=== PATIENT | male | born 1975 | race Hispanic/Latino ===

== ENCOUNTER 2019-06-02 09:16 | Inpatient (IN) | payer OTHER ==
[~2019-06-02] VITALS: Ht 167.6 cm; Wt 100.2 kg
[~2019-06-02 09:16] MED LIST: ALIVE MULTIVITAMIN PO; GLIMEPIRIDE2 MG PO; GLIMEPIRIDE4 MG PO; LISINOPRIL10 MG PO; PIOGLITAZONE45 MG PO; TERBINAFINE HC250 MG PO
[2019-06-02] MEDS ORDERED: SODIUM CHLORIDE 0.9% 1000ML 1,000 ML IV STA (09:19)
--- OUTSIDE RECORDS SUMMARY | 2019-06-02 09:21 | XMS REPORT ---
Author Author [facility] Address Unknown Phone Unavailable Care Team Providers [facility] Sales Representative Name Role Phone Yadiel FORD Unavailable Unavailable Problems This patient has no known problems. Allergies, Adverse Reactions, Alerts This patient has no known allergies or adverse reactions. Medications This patient has no known medications. Results Test Description Test Time Test Comments Text Results Atomic Results Result Comments CHEST [address] [address] Patient Name: CASSANDRA GREENFIELD MR #: [id number] : 1975 Age/Sex: 41/M Req #: [id number] Adm Physician: Ordered by: LINDY FORD MD Report #: [id number] Location: ER Room/Bed: Procedure: [id number] DX/CHEST 2 VIEWS Exam Date: 01/24/17 Exam Time: 2026 REPORT STATUS: Signed EXAMINATION: CHEST 2 VIEWS INDICATION: Cough. COMPARISON: None FINDINGS: TUBES and LINES: None. LUNGS: Lungs are well inflated. Lungs are clear. There is no evidence of pneumonia or pulmonary edema. PLEURA: No pleural effusion or pneumothorax. HEART AND MEDIASTINUM: The cardiomediastinal silhouette is unremarkable. BONES AND SOFT TISSUES: No acute osseous lesion. Soft tissues are unremarkable. UPPER ABDOMEN: No free air under the diaphragm. IMPRESSION: No acute thoracic abnormality. Signed by: Dr. Vasiliy Castorena M.D. on 01/24/2017 8:59 PM Dictated By: VASILIY MULLINS MD 56 Transcribed By: SHALINI on 01/24/172058 COPY TO: LINDY FORD MD
[2019-06-02] MEDS ORDERED: DEXTROSE 50% SYRINGE 50 ML IV PRN (09:30)
[2019-06-02 10:14] LABS: BASOPHILS # (AUTO) 0.1 (0.0-0.1); BASOPHILS % 0.5 % (0.0-1.0); EOSINOPHILS # (AUTO) 0.1 (0.0-0.4); HEMOGLOBIN 14.6 g/dL (14.0-18.0); LYMPHOCYTES # (AUTO) 1.7 (1.0-3.2); LYMPHOCYTES % 16.4 % (18.0-39.1); MEAN CORPUSCULAR HEMOGLOBIN 30.3 pg (28-32); MEAN CORPUSCULAR VOLUME 89.2 fL (81-99); MONOCYTES # (AUTO) 0.8 (0.2-0.8); MONOCYTES % 7.4 % (4.4-11.3); NEUTROPHILS # (AUTO) 7.6 (2.1-6.9); NEUTROPHILS % 74.3 % (38.7-80.0); PLATELET COUNT 167 x10e3/uL (140-360); RED BLOOD COUNT 4.82 x10e6/uL (4.3-5.7); RED CELL DISTRIBUTION WIDTH 12.2 % (11.7-14.4)
[2019-06-02 10:16] LABS: CLARITY,URINE SL CLOUDY (CLEAR); COLOR,URINE YELLOW (YELLOW)
[2019-06-02 10:17] LABS: BILIRUBIN,URINE NEGATIVE (NEGATIVE); KETONES,URINE TRACE (NEGATIVE); LEUKOCYTE ESTERASE ,URINE NEGATIVE (NEGATIVE); NITRITE,URINE NEGATIVE (NEGATIVE); PROTEIN,URINE DIPSTICK TRACE (NEGATIVE); URINE UROBILINOGEN 0.2 mg/dL (0.2 - 1)
[2019-06-02] MEDS: PIPER-TAZ 3.375 GM 50 ML IV SCH ×3 (10:19→21:25)
[2019-06-02] MEDS: MORPHINE SULFATE INJ 4 MG/ML INJ 1ML IV PRN ×2 (10:19→19:40)
[2019-06-02] MEDS: ONDANSETRON HCL INJ 2MG/ML 2ML 2 MG/ML VIAL IV PRN (10:19)
[2019-06-02] MEDS ORDERED: METFORMIN HCL1000 MG PO (10:25)
[2019-06-02] MEDS ORDERED: LEVEMIR FL100 UNIT/1 SQ (10:25)
[2019-06-02 10:32] LABS: BACTERIA,URINE FEW /HPF; EPITHELIAL CELLS,URINE FEW /LPF; RBC,URINE 0-5 /HPF (0-5); WBC,URINE (MAN) 0-5 /HPF (0-5)
[2019-06-02 10:35] LABS: ALANINE AMINOTRANSFERASE 20 IU/L (0-55); ALBUMIN 3.3 g/dL (3.5-5.0); ALBUMIN/GLOBULIN RATIO 0.7 (0.8-2.0); ALKALINE PHOSPHATASE 90 IU/L (40-150); ANION GAP 14.9 mmol/L (8-16); BLOOD UREA NITROGEN 21 mg/dL (7-26); BUN/CREATININE RATIO 19 (6-25); CALCIUM 9.6 mg/dL (8.4-10.2); CARBON DIOXIDE 26 mmol/L (22-29); CHLORIDE 103 mmol/L (98-107); CREATININE, SERUM 1.09 mg/dL (0.72-1.25); EST GLOMERULAR FILTRATION RATE > 60 ML/MIN (60-); GLUCOSE 152 mg/dL (74-118); POTASSIUM 3.9 mmol/L (3.5-5.1); SODIUM 140 mmol/L (136-145)
--- NOTE | 2019-06-02 10:51 | Diagnostic Imaging Report ---
EXAM: CT Abdomen and Pelvis WITHOUT intravenous contrast INDICATION: Testicular abscess, swelling COMPARISON: None. TECHNIQUE: Abdomen and pelvis were scanned utilizing a multidetector helical scanner from the lung base to the pubic symphysis without administration of IV contrast. Coronal and sagittal reformations were obtained. IV CONTRAST: None ORAL CONTRAST: None COMPLICATIONS: None RADIATION DOSE: Total DLP: 1020 mGy*cm Dose modulation, iterative reconstruction, and/or weight based adjustment of the mA/kV was utilized to reduce the radiation dose to as low as reasonably achievable. FINDINGS: LOWER THORAX: Mild atherosclerotic coronary artery calcifications. Mild bibasilar subsegmental atelectasis. HEPATOBILIARY: No focal liver lesion. No biliary ductal dilation. Unremarkable gallbladder. SPLEEN: No splenomegaly. PANCREAS: No focal masses or ductal dilatation. ADRENALS: No adrenal nodules. KIDNEYS/URETERS: 4 mm nonobstructive left upper pole renal calculus. 3 mm nonobstructive right lower pole renal calculus. No hydronephrosis or hydroureter. 1.5 cm exophytic right lower pole low density structure (11HU), most likely a cyst. PELVIC ORGANS/BLADDER: Unremarkable. PERITONEUM / RETROPERITONEUM: No free air or free fluid. LYMPH NODES: 2.3 x 1.6 cm right inguinal lymph node, likely reactive. VESSELS: Unremarkable. GI TRACT: No abnormal bowel thickening. No bowel obstruction. Normal appendix. BONES AND SOFT TISSUES: Extensive scrotal soft tissue swelling and skin thickening with associated scrotal fat stranding and minimal perineal fat stranding. No focal drainable fluid collection. No soft tissue emphysema. IMPRESSION: Extensive scrotal soft tissue swelling and skin thickening right greater than left without focal drainable fluid collection or subcutaneous gas, consistent with cellulitis. Enlarged right inguinal lymph node is likely reactive. 4 mm nonobstructive left upper pole renal calculus and 3 mm nonobstructive right lower pole renal calculus. 1.5 cm exophytic right lower pole low density structure most likely represents a cyst. However, there appears to be some internal heterogeneity. Renal ultrasound is recommended for further evaluation. Signed by: Becky Merino MD on 06/02/2019 10:48 AM
[2019-06-02] MEDS: INSULIN LISPRO 100 UNIT/1 ML 3ML VIAL SQ SCH ×3 (11:30→21:00)
[2019-06-02 12:09] VITALS: BP 133/80
[2019-06-02] MEDS ORDERED: LIDOCAINE 1% W/EPINEPHRINE 20 ML VIAL ONE (12:35)
[2019-06-02] MEDS ORDERED: VANCOMYCIN 1GM/NS 250 ML 250 ML ONE (12:38)
[2019-06-02] MEDS ORDERED: FENTANYL CITRATE/PF 100MCG/2 ML INJ ONE (12:56)
[2019-06-02] MEDS ORDERED: MIDAZOLAM HCL 2 MG/2 ML VIAL ONE (12:56)
[2019-06-02] MEDS ORDERED: DEXAMETHASONE SOD PHOS INJ 4 MG/ML VIAL ONE (14:08)
[2019-06-02] MEDS ORDERED: ONDANSETRON HCL INJ 2MG/ML 2ML 2 MG/ML VIAL ONE (14:08)
[2019-06-02] MEDS ORDERED: SEVOFLURANE INHAL SOLN 250 ML PEN BTL ONE (14:08)
[2019-06-02] MEDS ORDERED: ACETAMINOPHEN 1000 MG/100 ML IV ONE (14:08)
[2019-06-02] MEDS ORDERED: PROPOFOL IV EMULSION 10 MG/ML 20 ML VIAL ONE (14:08)
[2019-06-02] MEDS ORDERED: LIDOCAINE HCL 2% LOCAL INJ 5 ML SDV VIAL INJ ONE (14:08)
[2019-06-02 15:05] VITALS: BP 116/81
--- NOTE | 2019-06-02 16:09 | Operative Report ---
DATE OF PROCEDURE: 06/02/2019 SURGEON: Godfrey Green MD PREOPERATIVE DIAGNOSIS: Right scrotal abscess. POSTOPERATIVE DIAGNOSIS: Right scrotal abscess. OPERATION PERFORMED: Incision and drainage of right scrotal abscess. ANESTHESIA: General. COMPLICATIONS: None. SPECIMENS: Cultures. ESTIMATED BLOOD LOSS: Minimal. CLINICAL SUMMARY: Vasu Miranda is a 44-year-old poorly-controlled diabetic with a week-long history of progressively worsening right scrotal swelling, it is consistent with an abscess on physical examination. He is brought to the operating room for incision and drainage. He is aware of the risks of bleeding, infection, injury to adjacent structures. He understands he will have an open wound that will require packing until it is healed by secondary intention. He understood these risks and elected to proceed. OPERATIVE PROCEDURE IN DETAIL: Informed consent was verified. Vasu Miranda was properly identified and taken to the operating room, placed on the cystoscopy table in supine position. Anesthesia was uneventfully begun. The patient was placed in a frogleg position with all pressure points carefully well padded. His genitalia were shaved, prepared, and draped in the usual sterile fashion. A longitudinal incision was made through the skin overlying the abscess, this was carried into the abscess. Thick purulent and malodorous pus was obtained, it was sent for culture and sensitivity. Copious irrigation was performed. We debrided a little bit of necrotic tissue. Lidocaine with epinephrine was utilized to infiltrate circumferentially around the abscess cavity for postoperative pain control and after copiously irrigating one last time, we packed the incision with half-inch iodoform gauze and covered it with sterile gauze, held in place with meshed panties. The patient was then uneventfully reversed from anesthesia and taken to the recovery room in stable condition. There were no complications of the procedure. The patient tolerated the procedure well. Sponge, needle, and instrument counts were correct x2 at the end of the case. Estimated blood loss was minimal. Explicit postop instructions were given. We will follow the patient up on a long-term basis. Godfrey Green MD OH/MODL /[id number] cc: MD Forest Kirkpatrick MD
[2019-06-02 16:24] VITALS: BP 119/64
[2019-06-02] MEDS ORDERED: ACETAMINOPHEN 325 MG TAB PO PRN (16:45)
--- NOTE | 2019-06-02 18:19 | Consultation ---
DATE OF CONSULTATION: 06/02/2019 Urology Consultation REASON FOR CONSULTATION: Scrotal abscess. HISTORY OF PRESENT ILLNESS: Vasu Miranda is a 44-year-old man, who has never seen a urologist. He denies hematuria, dysuria, urinary tract infection and urolithiasis. He reports having impotence as well as nocturia x2. The patient also has had a problem with morbid obesity and poorly controlled diabetes with hemoglobin A1c approximately 14. The patient is admitted with a 1-week history of enlarging tender right scrotal lesion consistent with an abscess. Urological consultation was sought for management. The patient has been placed n.p.o. and was maintained as such after showing up in the emergency room. PAST MEDICAL AND SURGICAL HISTORY: 1. Status post umbilical herniorrhaphy. 2. Diabetes mellitus. 3. Hypercholesterolemia. 4. Hypertension. 5. Status post left arm tendon repair. 6. Obesity. ALLERGIES: NONE KNOWN. CURRENT MEDICATIONS: Please refer to MAR. SOCIAL HISTORY: The patient denies smoking, ethanol, or drug use. He smoked when he was a teenager. 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 FAMILY HISTORY: Noncontributory to the active urological problems. REVIEW OF SYSTEMS: As discussed as above in the history of present illness, past medical history otherwise negative for all systems. PHYSICAL EXAMINATION: GENERAL: A pleasant 44-year-old man lying in bed, in no apparent distress. VITAL SIGNS: He is currently afebrile and his vital signs are currently stable. ABDOMEN: Soft, nondistended, nontender without costovertebral angle tenderness. Kidneys not palpable without hepatosplenomegaly. The patient is obese. GENITOURINARY: Testes are descended bilaterally. Testes and epididymides bilaterally palpably normal. The patient has a large at least 5 or 6 cm x 3 cm tender growth consistent with an abscess in the right hemiscrotum near the groin crease. The testicle does not seem to be involved. The patient has a normal uncircumcised male phallus with normal meatus. For the remaining physical examination systems, please refer to the ERT sheet as well as the history and physical by the admitting physician. LABORATORY STUDIES: Urinalysis reveals 2+ glucose. The patient's creatinine is 1.09. The patient's white blood cell count is 10,280, hemoglobin 14.6, platelets of 167,000. Glucose is elevated at 138. ASSESSMENT: 1. Nocturia. 2. Erectile dysfunction. 3. Obesity. 4. Poorly-controlled diabetes with glycosuria. PLAN: 1. Stat incision and drainage of the abscess. 2. Following incision and drainage, the patient will be admitted for intravenous antibiotics. 3. Once we have the final culture and sensitivity result, the patient may go home on culture specific antibiotics with dressing changes and packing changes b.i.d. utilizing half-inch Nu Gauze plain packing with overlying 4x4s held in place with mesh panties without the utilization of tape. Thank you much for involving us in care of your patient. We will be happy to follow him along with you as well as an outpatient. Godfrey Green MD OH/MODL /[id number] cc: Forest Remy MD
[2019-06-02 20:00] VITALS: BP 127/82
[2019-06-02] MEDS ORDERED: HYDROCODONE/APAP 10MG-325MG TAB PO PRN (22:45)
[2019-06-03] VITALS (9 sets, daily range): BP systolic 116–147; BP diastolic 66–84
[2019-06-03] MEDS: PIPER-TAZ 3.375 GM 50 ML IV SCH ×4 (04:00→21:05)
[2019-06-03 06:18] LABS: BASOPHILS % 0.2 % (0.0-1.0); EOSINOPHILS % 0.2 % (0.0-6.0); HEMATOCRIT 38.1 % (38.2-49.6); HEMOGLOBIN 12.6 g/dL (14.0-18.0); LYMPHOCYTES # (AUTO) 1.2 (1.0-3.2); LYMPHOCYTES % 12.2 % (18.0-39.1); MEAN CORPUSCULAR HEMOGLOBIN 29.9 pg (28-32); MEAN CORPUSCULAR HGB CONC 33.1 g/dL (31-35); MEAN CORPUSCULAR VOLUME 90.5 fL (81-99); MONOCYTES # (AUTO) 0.6 (0.2-0.8); MONOCYTES % 6.3 % (4.4-11.3); NEUTROPHILS % 80.8 % (38.7-80.0); PLATELET COUNT 145 x10e3/uL (140-360); RED BLOOD COUNT 4.21 x10e6/uL (4.3-5.7); RED CELL DISTRIBUTION WIDTH 12.1 % (11.7-14.4)
[2019-06-03 06:45] LABS: ALANINE AMINOTRANSFERASE 21 IU/L (0-55); ALBUMIN 2.7 g/dL (3.5-5.0); ALBUMIN/GLOBULIN RATIO 0.7 (0.8-2.0); ALKALINE PHOSPHATASE 87 IU/L (40-150); ANION GAP 10.3 mmol/L (8-16); BLOOD UREA NITROGEN 17 mg/dL (7-26); BUN/CREATININE RATIO 21 (6-25); CALCIUM 8.7 mg/dL (8.4-10.2); CARBON DIOXIDE 24 mmol/L (22-29); CHLORIDE 105 mmol/L (98-107); CREATININE, SERUM 0.81 mg/dL (0.72-1.25); EST GLOMERULAR FILTRATION RATE > 60 ML/MIN (60-); GLUCOSE 260 mg/dL (74-118); POTASSIUM 4.3 mmol/L (3.5-5.1); SODIUM 135 mmol/L (136-145)
[2019-06-03] MEDS: INSULIN LISPRO 100 UNIT/1 ML 3ML VIAL SQ SCH ×4 (10:43→21:05)
[2019-06-03] MEDS: MORPHINE SULFATE INJ 4 MG/ML INJ 1ML IV PRN (12:50)
[2019-06-03] MEDS: ONDANSETRON HCL INJ 2MG/ML 2ML 2 MG/ML VIAL IV PRN (12:50)
[2019-06-04] VITALS (8 sets, daily range): BP systolic 105–128; BP diastolic 65–77
[2019-06-04] MEDS: PIPER-TAZ 3.375 GM 50 ML IV SCH ×4 (04:50→21:32)
[2019-06-04] MEDS: LISINOPRIL 10 MG TAB PO SCH (08:07)
[2019-06-04] MEDS: METFORMIN HCL 500 MG TAB CR PO SCH ×2 (08:07→16:30)
[2019-06-04] MEDS: GLIMEPIRIDE 2 MG TAB PO SCH (08:07)
[2019-06-04] MEDS: INSULIN LISPRO 100 UNIT/1 ML 3ML VIAL SQ SCH ×4 (08:18→20:30)
[2019-06-04] MEDS ORDERED: BISACODYL 5 MG TAB EC PO PRN (08:30)
[2019-06-04] MEDS ORDERED: PIOGLITAZONE HCL 15 MG TAB PO SCH (09:00)
[2019-06-05] VITALS: BP 123/70
[2019-06-05 04:00] VITALS: BP 113/70
[2019-06-05] MEDS: PIPER-TAZ 3.375 GM 50 ML IV SCH ×2 (04:45→09:43)
[2019-06-05] MEDS: INSULIN LISPRO 100 UNIT/1 ML 3ML VIAL SQ SCH (07:30)
[2019-06-05 07:49] VITALS: BP 121/77
[2019-06-05] MEDS: METFORMIN HCL 500 MG TAB CR PO SCH (08:29)
[2019-06-05] MEDS: LISINOPRIL 10 MG TAB PO SCH (08:30)
[2019-06-05] MEDS: GLIMEPIRIDE 2 MG TAB PO SCH (08:30)
[2019-06-05 08:44] VITALS: BP 121/77
[2019-06-05] MEDS ORDERED: PIOGLITAZONE HCL 45 MG TAB PO SCH (09:00)
[2019-06-05] MEDS ORDERED: BACTRIM DS TAB1 EACH PO (10:49)
[2019-06-05] MEDS ORDERED: TYLENOL WITH C1 EACH PO (10:51)
[2019-06-05 11:00] VITALS: BP 129/77
--- NOTE | 2019-06-06 05:28 | Discharge Summary ---
DISCHARGE DIAGNOSES: 1. Scrotal abscess, status post I and D. 2. Diabetes. 3. Hypertension. HISTORY OF PRESENT ILLNESS AND HOSPITAL COURSE: See hospital chart for full details. The patient is a noncompliant severe diabetic, A1cs near 14, who presented to my office with a 1 day complaint of scrotal pain, where he was noticed to have a large scrotal abscess, mostly on the right scrotal, so he was sent to the ER, then to the OR immediately, where Dr. Green performed an I and D and large pus removal. CT scan did not show any evidence of extensive abscess or deep cellulitis changes. The patient was placed on IV antibiotics. He stated he felt significantly better. Laboratory data was unremarkable except for elevated sugars. I did have a long talk with the patient and the that he needs to get serious about his ultimate control of his sugar because these could keep reoccurring if he does not control and he states that this episode really scared him that he is going to start becoming more compliant with his diet, exercise, and sugar regimen for his diabetes, so the patient was discharged home with some Tylenol No. 3 and Bactrim. He is to follow up in 2 weeks with me as well as with Dr. Green. The patient was instructed to do the packing and his will do it at home. He is to call if there are any changes. Please see hospital chart for full details. MD TOI Kaur/KIM /[id number]
== END 2019-06-05 11:36 | disposition home or self-care (01) | DRG 718 ==
LOC: ER 09:16 → ERHOLD 09:29 → MED/SURG3 10:44
PROVIDERS: ADMIT Internal Medicine; ATTEND Internal Medicine
PROC: 0V950ZZ Drainage of Scrotum, Open Approach (ICD-10-PCS; principal; 2019-06-02 12:30)
DX: N49.2 Inflammatory disorders of scrotum (principal); I10 Essential (primary) hypertension; Z83.3 Family history of diabetes mellitus; Z82.49 Family history of ischemic heart disease and other diseases of the circulatory system; E66.01 Morbid (severe) obesity due to excess calories; Z68.35 Body mass index [BMI] 35.0-35.9, adult; E78.00 Pure hypercholesterolemia, unspecified; R35.1 Nocturia; N52.9 Male erectile dysfunction, unspecified; E11.65 Type 2 diabetes mellitus with hyperglycemia; Z79.4 Long term (current) use of insulin
CPT/HCPCS: 36415; 74176; 80053; 81001; 82948; 85025; 87071; 87075; 87086; 87186; 87205; 96365; 99251; 99284; J1100; J2001; J2250; J2270; J2405; J2543; J3010; J3370; J7030

== ENCOUNTER → 2019-07-07 | Outpatient (CLI) | payer OTHER ==
[~2019-07-07] MED LIST changes: +BACTRIM DS TAB1 EACH PO; +LEVEMIR FL100 UNIT/1 SQ; +METFORMIN HCL1000 MG PO; +TYLENOL WITH C1 EACH PO
--- NOTE | 2019-07-07 10:53 | Diagnostic Imaging Report ---
Exam: KUB - 2 views Indication: Renal calculi Comparison: CT abdomen and pelvis of 06/02/2019 Findings: No radiographically apparent renal calculi. The left upper pole and right lower pole renal calculi seen on the CT of 06/02/2019 are likely beyond the resolution of this radiograph. Nonobstructive bowel gas pattern. No free air. No acute osseous injury. Impression: No radiographically apparent renal calculi. Bilateral renal calculi seen on the CT of 06/02/2019 are likely beyond the resolution of this radiograph. Signed by: Becky Merino MD on 07/07/2019 10:49 AM
== END ==
LOC: RAD 10:19
PROVIDERS: ATTEND Urology
DX: N20.0 Calculus of kidney (principal)
CPT/HCPCS: 74018

== ENCOUNTER → 2019-09-13 | Outpatient (CLI) | payer OTHER ==
[~2019-09-13] MED LIST changes: +REGADENOSON 0.4 MG/5 ML SYR IV ONE
--- NOTE | 2019-09-13 20:05 | Myoview Stress Test ---
DATE OF STUDY: 09/13/2019 09:03:00 Stress Test - Treadmill ONLY PROCEDURE TITLE: Rest/stress single isotope SPECT imaging with pharmacologic stress and gated SPECT imaging. INDICATION: Shortness of breath. PROCEDURE IN DETAIL: Pharmacologic stress testing was performed with regadenoson per protocol. The heart rate was 70 beats per minute at rest, increased to 96 beats per minute during the regadenoson infusion. The resting blood pressure was 118/89 and increased to 122/75 mmHg, which is normal response. The resting electrocardiogram demonstrated normal sinus rhythm. There were no ST-segment changes suggestive of myocardial ischemia. Myocardial perfusion imaging was performed at rest following the injection of 11 mCi of tetrofosmin. At peak pharmacologic effect, the patient was injected with 33 millicurie of tetrofosmin. Gated post-stress tomographic imaging was performed. FINDINGS: The overall quality of study is fair. SPECT images demonstrate a small mild perfusion defect at rest that is improved with stress. Gated SPECT imaging reveals normal myocardial thickening and wall motion. The overall quality of study is fair. Left ventricular cavity is noted to be normal size on the rest and stress studies. SPECT images demonstrate a small mild perfusion defect in the inferior wall on stress. Gated SPECT imaging reveals normal myocardial thickening and wall motion. The left ventricular ejection fraction was calculated at 49%. IMPRESSION: Myocardial perfusion imaging is abnormal. There is a small area of mild ischemia in the inferior wall, cannot rule out attenuation artifact. Overall, left ventricular systolic pressure was normal without regional wall motion abnormalities. Barb Echevarria MD ABS/MODL /[id number]
== END ==
LOC: NM 08:56
PROVIDERS: ATTEND Internal Medicine
DX: R07.9 Chest pain, unspecified (principal)
CPT/HCPCS: 78452; 93017; A9502; J2785

== ENCOUNTER → 2021-08-13 | Day surgery (SDC) | payer OTHER ==
[2021-08-09 10:16] LABS: BASOPHILS # (AUTO) 0.1 (0.0-0.1); BASOPHILS % 0.9 % (0.0-1.0); EOSINOPHILS # (AUTO) 0.1 (0.0-0.4); EOSINOPHILS % 1.2 % (0.0-6.0); HEMATOCRIT 46.4 % (38.2-49.6); HEMOGLOBIN 14.9 g/dL (14.0-18.0); LYMPHOCYTES # (AUTO) 2.1 (1.0-3.2); LYMPHOCYTES % 25.7 % (18.0-39.1); MEAN CORPUSCULAR HEMOGLOBIN 30.3 pg (28-32); MEAN CORPUSCULAR HGB CONC 32.1 g/dL (31-35); MEAN CORPUSCULAR VOLUME 94.5 fL (81-99); MONOCYTES # (AUTO) 0.7 (0.2-0.8); NEUTROPHILS # (AUTO) 5.1 (2.1-6.9); PLATELET COUNT 159 x10e3/uL (140-360); RED BLOOD COUNT 4.91 x10e6/uL (4.3-5.7); RED CELL DISTRIBUTION WIDTH 13.3 % (11.7-14.4)
[2021-08-09 10:39] LABS: ALBUMIN 3.6 g/dL (3.5-5.0); ANION GAP 16.1 mmol/L (8-16); CALCIUM 8.8 mg/dL (8.4-10.2); CREATININE, SERUM 1.21 mg/dL (0.72-1.25); POTASSIUM 4.1 mmol/L (3.5-5.1)
[2021-08-13] VITALS (11 sets, daily range): BP systolic 110–158; BP diastolic 56–96
[~2021-08-13] VITALS: Ht 167.6 cm; Wt 131.5 kg
[~2021-08-13] MED LIST changes: +ALPRAZOLAM 0.5 MG TAB ONE; +ASPIRIN81 MG PO; +ATORVASTATIN CA20 MG PO; +BUMETANIDE1 MG PO; +DEXTROSE 50% SYRINGE 50 ML IV ONE; +DEXTROSE 50% SYRINGE 50 ML IV STA; +DIPHENHYDRAMINE HCL 25 MG CAP ONE; +FENTANYL CITRATE/PF 100MCG/2 ML INJ ONE; +HEPARIN SOD/SOD CHLORIDE 2,000 ML ONE; +IOPAMIDOL 370 MG/ML 100 ML INFUS..BTL INJ ONE; +LANTUS 3ML100 UNITS/ SQ; +LIDOCAINE HCL 1% LOCAL INJ 20 ML VIAL ONE; +METOPROLOL TART25 MG PO; +MIDAZOLAM HCL 2 MG/2 ML VIAL ONE; +NITRIC OXIDE PO; +NITROGLYCERIN/D5W 200 MCG/ML 250 ML ONE; -REGADENOSON 0.4 MG/5 ML SYR IV ONE; +SODIUM CHLORIDE 0.9% 1000ML 1,000 ML ONE; +VERAPAMIL HCL 2.5 MG/ML 2 ML VIAL ONE; +[UNRECOGNIZED DRUG - OTHER] PO
== END | disposition home or self-care (01) ==
LOC: CATH LAB 11:48
PROVIDERS: ATTEND Internal Medicine Interventional Cardiology
DX: I25.118 Atherosclerotic heart disease of native coronary artery with other forms of angina pectoris (principal); R94.39 Abnormal result of other cardiovascular function study; Z01.812 Encounter for preprocedural laboratory examination; Z20.822 Contact with and (suspected) exposure to COVID-19; Z79.4 Long term (current) use of insulin; Z79.82 Long term (current) use of aspirin; Z79.899 Other long term (current) drug therapy
CPT/HCPCS: 36415 ×2; 76937; 80053; 82948; 85025; 93454; C1887; C1894; J2001; J2250; J3010; J7030; J7799; Q9967; U0002; 99152